=== PATIENT | male | born 1940 | race Caucasian/White ===

== ENCOUNTER 2016-10-11 07:58 | Emergency (ER) | payer MEDICARE, OTHER ==
[2016-10-11] MEDS ORDERED: HYDROmorphone 0.5 MG/0.5 ML Syringe IVPUSH ONE (08:11)
[2016-10-11] MEDS ORDERED: Metoclopramide 10 MG/2 ML SDV IVPUSH ONE (08:11)
[2016-10-11] MEDS ORDERED: Ketorolac 30 MG/ML SDV IVPUSH SCH (08:15)
[2016-10-11] MEDS ORDERED: Dextrose 5%-0.9% NaCl 1,000 ML IV SCH (08:15)
--- NOTE | 2016-10-11 08:17 | EDM.PDOC ---
ED HPI GENERAL MEDICAL PROBLEM - General Chief Complaint: Respiratory Problem Stated Complaint: [facility] Time Seen by Provider: 10/11/16 08:08 Source of Information: Reports: Patient History Limitations: Reports: No Limitations - History of Present Illness INITIAL COMMENTS - FREE TEXT/NARRATIVE: 76-year-old male presents to the ED with severe left upper anterior chest pain radiate through to his back and a sharp stabbing pleuritic fashion. States he is now 11 days post op left upper lobe where resection for cancer of the lung. Head and well up until last night in fact hadn't used any pain medication at all. Started after watching the ball game about 9:00 last night. It has persisted throughout the night. He's been taking Tylenol 2 tablets every 4 hours with some degree of relief. Some associated shortness of breath. Intermittent cough but no hemoptysis. He stayed in hospital for one week after surgery. It was carried out by Dr. Jarvis cardiovascular surgeon at [facility]. Denies fever or chills. Pain is worse with deep cough Onset: Sudden Onset Date: 10/10/16 Onset Time: 21:00 Duration: Hour(s):, Constant (Very sharp and pleuritic.) Location: Reports: Chest (Left upper anterior chest.) Quality: Reports: Sharp, Stabbing Severity: Severe (Rates the pain as 8-9 out of 10.) Improves with: Reports: Rest Worsens with: Reports: Movement (And shallow breathing. And deep breathing or coughing.) Context: Reports: Other (He is 11 days postop left upper lobe resection for cancer of the lung.) Associated Symptoms: Reports: Chest Pain, Shortness of Breath (A little more short of breath this morning the normal.). Denies: Confusion, Cough, cough w sputum, Diaphoresis, Fever/Chills, Headaches, Loss of Appetite, Malaise, Nausea/ Vomiting, Rash, Seizure, Syncope, Weakness Treatments [employer]: Reports: Acetaminophen Left Upper Chest Pain Score (Numeric/FACES): 4 - Related Data Allergies Allergy/AdvReac Type Severity Reaction Status Date / Time ticagrelor [From Brilinta] Allergy Shortness Verified 10/11/16 08:09 of Breath hydrocodone AdvReac Renal Verified 10/11/16 08:09 Failure Home Meds: Home Meds Aspirin [Manolo Chewable Aspirin] 81 mg PO DAILY 03/14/16 [History] Clopidogrel [Plavix] 75 mg PO DAILY 03/14/16 [History] Furosemide 20 mg PO DAILY 03/14/16 [History] Garlic 1,000 mg PO BEDTIME 03/14/16 [History] Insulin Aspart [Novolog Flexpen] 0 units SQ TID 03/14/16 [History] Insulin Glarg,Human.Rec.Analog [Lantus Solostar] 0 unit SUBCUT BEDTIME 03/14/16 [History] Lisinopril 2.5 mg PO DAILY 03/14/16 [History] Metoprolol Succinate [Toprol XL 50mg] 50 mg PO DAILY 03/14/16 [History] Pantoprazole [ProTONIX] 40 mg PO ACBREAKFAST 03/14/16 [History] Simvastatin [Zocor] 40 mg PO BEDTIME 03/14/16 [History] metFORMIN HCl [Metformin HCl] 1,000 mg PO BID 03/14/16 [History] Amiodarone [Cordarone] 400 mg PO BID 10/11/16 [History] Cyanocobalamin (Vitamin B12) [Vitamin B12] 1,000 mcg INJECT WEEKLY 10/11/16 [ History] Tamsulosin [Flomax] 0.4 mg PO DAILY 10/11/16 [History] Ubiquinol 100 mg PO DAILY 10/11/16 [History] oxyCODONE HCl/Acetaminophen [oxyCODONE-Acetaminophen 5-325] 2 tab PO Q4H PRN 10/21 [History] traMADol [Ultram] 50 mg PO Q6H PRN 10/11/16 [History] Past Medical History HEENT History: Reports: Impaired Vision, Retinal Detachment, Sinusitis Other HEENT History: wears eyeglassess, has upper and lower dentures, states eyes water frequently Cardiovascular History: Reports: Bypass, High Cholesterol, Hypertension, Pacemaker, Stents Gastrointestinal History: Reports: Chronic Constipation, GERD, Hemorrhoids Genitourinary History: Reports: Prostate Disorder Musculoskeletal History: Reports: Other (See Below) Other Musculoskeletal History: knees and left hip problems Endocrine/Metabolic History: Reports: Diabetes, Type II Oncologic (Cancer) History: Reports: Leukemia, Other (See Below) Other Oncologic History: 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; skin cancer Dermatologic History: Reports: Other (See Below) Other Dermatologic History: patient states he gets shingles ever year - Infectious Disease History Infectious Disease History: Reports: Shingles - Past Surgical History HEENT Surgical History: Reports: Cataract Surgery Cardiovascular Surgical History: Reports: Coronary Artery Stent, Other (See Below) Musculoskeletal Surgical History: Reports: Hip Replacement, Other (See Below) Oncologic Surgical History: Reports: Other (See Below) Social & Family History - Family History Family Medical History: Noncontributory Cardiac: Reports: [place] Oncologic: Reports: Leukemia - Tobacco Use Smoking Status *Q: Former Smoker Years of Tobacco use: 40 Used Tobacco, but Quit: Yes Month Tobacco Last Used: around 17 years ago - Caffeine Use Caffeine Use: Reports: None - Recreational Drug Use Recreational Drug Use: No Drug Use in Last 12 Months: No - Living Situation & Occupation Living situation: Reports: , with Significant Other Occupation: Retired ED ROS GENERAL - Review of Systems Review Of Systems: See Below Constitutional: Reports: Malaise (Recovering from surgery), Fatigue (From not sleeping very well last night), Decreased Appetite. Denies: Fever, Chills HEENT: Reports: No Symptoms Respiratory: Reports: Shortness of Breath, Pleuritic Chest Pain (Left upper anterior chest range through to the back chest.), Cough. Denies: Wheezing, Sputum, Hemoptysis Cardiovascular: Reports: Chest Pain (Minimal intermittent cough with no sputum production.), Blood Pressure Problem. Denies: Claudication, Edema, Lightheadedness, Orthopnea Endocrine: Reports: Fatigue GI/Abdominal: Reports: Constipation (Bowels are working normally now. But was constipated for a period of time) : Reports: Frequency, Other (Nocturia usually 3 has a known enlarged prostate ) Musculoskeletal: Reports: Back Pain Skin: Reports: No Symptoms Neurological: Reports: No Symptoms Psychiatric: Reports: No Symptoms Immunologic: Reports: No Symptoms ED EXAM, GENERAL - Physical Exam Exam: See Below Exam Limited By: No Limitations General Appearance: Alert, Mild Distress Eye Exam: Bilateral Eye: Normal Inspection Throat/Mouth: Normal Inspection, Normal Lips, Normal Teeth, Normal Oropharynx Head: Atraumatic, Normocephalic Neck: Normal Inspection, Supple, Non-Tender, Full Range of Motion Respiratory/Chest: Lungs Clear (Air entry is diminished to the left upper lobe but only slightly. No crackles or rhonchi were appreciated on exam.), Other ( Tenderness left upper anterior chest particularly ribs 34 and 5. His scar seems to be healing adequately although it's puffed up compatible with hematoma formation underneath this. There is no signs of active infection.). No: Crackles, Rales, Rhonchi, Wheezing Cardiovascular: Normal Peripheral Pulses, Regular Rate, Rhythm, No Murmur, Other (Pacemaker right upper anterior chest.) Peripheral Pulses: 2+: Posterior Tibial (L), Posterior Tibial (R), Dorsalis Pedis (L), Dorsalis Pedis (R) GI/Abdominal: Normal Bowel Sounds, Soft, Non-Tender, No Organomegaly, No Distention, No Abnormal Bruit, No Mass, Pelvis Stable Back Exam: Normal Inspection, Full Range of Motion, Other Extremities: Normal Inspection, Normal Range of Motion, Non-Tender, No Pedal Edema, Normal Capillary Refill Neurological: Alert, Oriented, CN II-XII Intact, Normal Cognition, No Motor/ Sensory Deficits ED RESPIRATORY PROCEDURES - Chest Tube Insertion Chest Tube Location: Left Site: Anterior Axillary Line, Intercostal Space: (5) Tube Size: 32Fr Skin Prep: CDC Guidelines Followed, Chlorhexidine Local Anesthesia - Bupivicaine (Marcaine): 0.5% Plain Local Anesthetic Volume: 4cc Boyd of Air [place]: Yes Number of Attempts: 2 Tube Sutured to Skin: Yes Post procedure tube position confirmed by: by CXR, by Provider Tube Connected to Suction: Yes EKG INTERPRETATION EKG Date: 10/11/16 Time: 08:20 Rhythm: Other (Sinus rhythm versus ectopic atrial rhythm.) Rate (Beats/Min): 66 Seeley: LAD-Left Seeley Deviation (Left axis deviation of -18) P-Wave: Variable QRS: LBBB ST-T: Normal QT: Prolonged Course - Vital Signs Last Recorded V/S: Last Vital Signs Temp 36.2 C 10/11/16 08:03 Pulse 64 10/11/16 08:45 Resp 19 10/11/16 08:45 BP 109/84 10/11/16 08:45 Pulse Ox 95 10/11/16 08:45 - Orders/Labs/Meds Orders: Active Orders 24 hr Category Date Time Status EKG Documentation Completion [RC] STAT Care 10/11/16 08:10 Active Chest 1V Frontal [CR] Routine Exams 10/11/16 11:59 Taken Chest 1V Frontal [CR] Stat Exams 10/11/16 08:09 Taken CBC W/O DIFF,HEMOGRAM [HEME] MOTH@0700 Lab 10/14/16 07:00 Ordered CBC W/O DIFF,HEMOGRAM [HEME] MOTH@0700 Lab 10/17/16 07:00 Ordered CBC W/O DIFF,HEMOGRAM [HEME] MOTH@0700 Lab 10/21/16 07:00 Ordered CBC W/O DIFF,HEMOGRAM [HEME] MOTH@0700 Lab 10/24/16 07:00 Ordered CBC W/O DIFF,HEMOGRAM [HEME] MOTH@0700 Lab 10/28/16 07:00 Ordered CBC W/O DIFF,HEMOGRAM [HEME] MOTH@0700 Lab 10/31/16 07:00 Ordered Dextrose 5%-0.9% NaCl [Dextrose 5%-Normal Saline] 1,000 Med 10/11/16 08:15 Active ml IV ASDIRECTED Ketorolac [Toradol] Med 10/11/16 08:15 Active 30 mg IVPUSH ONETIME Sodium Chloride 0.9% [Normal Saline] 100 ml Med 10/11/16 10:15 Active IV ASDIRECTED Medication Orders Dextrose/Sodium Chloride (Dextrose 5%-Normal Saline) 1,000 mls @ 100 mls/hr IV ASDIRECTED CEDRIC Last Admin: 10/11/16 08:36 Dose: 100 mls/hr Sodium Chloride (Normal Saline) 100 mls @ 60 mls/hr IV ASDIRECTED CEDRIC Stop: 10/11/16 13:00 Last Admin: 10/11/16 10:31 Dose: 60 mls/hr Ketorolac Tromethamine (Toradol) 30 mg IVPUSH ONETIME CEDRIC Last Admin: 10/11/16 08:42 Dose: 30 mg Labs: Laboratory Tests 10/11/16 10/11/16 10/11/16 Range/Units 08:20 09:13 09:13 WBC 14.19 H (4.23-9.07) K/mm3 RBC 4.25 L (4.63-6.08) M/mm3 Hgb 13.3 L (13.7-17.5) gm/L Hct 40.7 (40.1-51.0) % MCV 95.8 H (79.0-92.2) fl MCH 31.3 (25.7-32.2) pg MCHC 32.7 (32.2-35.5) g/dl RDW Std Deviation 47.6 H (35.1-43.9) fL Plt Count 268 (163-337) K/mm3 MPV 12.3 (9.4-12.3) fl Neutrophils % (Manual) 72 H (40-60) % Band Neutrophils % 1 (0-10) % Lymphocytes % (Manual) 14 L (20-40) % Atypical Lymphs % 0 % Monocytes % (Manual) 7 (2-10) % Eosinophils % (Manual) 5 (0.8-7.0) % Basophils % (Manual) 1 (0.2-1.2) Platelet Estimate Adequate RBC Morph Comment Normal PT 10.2 (8.0-13.0) SECONDS INR 0.94 D-Dimer, Quantitative (0.19-0.59) mg/L Sodium 136 (136-145) mEq/L Potassium 4.6 (3.5-5.1) mEq/L Chloride 102 (98-107) mEq/L Carbon Dioxide 27 (21-32) mEq/L Anion Gap 11.6 (5-15) BUN 14 (7-18) mg/dL Creatinine 1.3 (0.7-1.3) mg/dL Est Cr Clr Drug Dosing 52.93 mL/min Estimated GFR (MDRD) 53 (>60) mL/min BUN/Creatinine Ratio 10.8 L (14-18) Glucose 114 (83-115) mg/dL Calcium 9.6 (8.5-10.1) mg/dL Magnesium 1.4 L (1.8-2.4) mg/dl Total Bilirubin 0.4 (0.2-1.0) mg/dL AST 22 (15-37) U/L ALT 37 (16-63) U/L Alkaline Phosphatase 128 H (46-116) U/L CK-MB (CK-2) 0.6 (0-3.6) ng/ml Troponin I < 0.017 (0.00-0.056) ng/mL B-Natriuretic Peptide (0-100) pg/mL Total Protein 6.4 (6.4-8.2) g/dl Albumin 2.8 L (3.4-5.0) g/dl Globulin 3.6 gm/dL Albumin/Globulin Ratio 0.8 L (1-2) 10/11/16 10/11/16 Range/Units 09:13 09:13 WBC (4.23-9.07) K/mm3 RBC (4.63-6.08) M/mm3 Hgb (13.7-17.5) gm/L Hct (40.1-51.0) % MCV (79.0-92.2) fl MCH (25.7-32.2) pg MCHC (32.2-35.5) g/dl RDW Std Deviation (35.1-43.9) fL Plt Count (163-337) K/mm3 MPV (9.4-12.3) fl Neutrophils % (Manual) (40-60) % Band Neutrophils % (0-10) % Lymphocytes % (Manual) (20-40) % Atypical Lymphs % % Monocytes % (Manual) (2-10) % Eosinophils % (Manual) (0.8-7.0) % Basophils % (Manual) (0.2-1.2) Platelet Estimate RBC Morph Comment PT (8.0-13.0) SECONDS INR D-Dimer, Quantitative 4.04 H (0.19-0.59) mg/L Sodium (136-145) mEq/L Potassium (3.5-5.1) mEq/L Chloride (98-107) mEq/L Carbon Dioxide (21-32) mEq/L Anion Gap (5-15) BUN (7-18) mg/dL Creatinine (0.7-1.3) mg/dL Est Cr Clr Drug Dosing mL/min Estimated GFR (MDRD) (>60) mL/min BUN/Creatinine Ratio (14-18) Glucose (83-115) mg/dL Calcium (8.5-10.1) mg/dL Magnesium (1.8-2.4) mg/dl Total Bilirubin (0.2-1.0) mg/dL AST (15-37) U/L ALT (16-63) U/L Alkaline Phosphatase (46-116) U/L CK-MB (CK-2) (0-3.6) ng/ml Troponin I (0.00-0.056) ng/mL B-Natriuretic Peptide 121 H (0-100) pg/mL Total Protein (6.4-8.2) g/dl Albumin (3.4-5.0) g/dl Globulin gm/dL Albumin/Globulin Ratio (1-2) Meds: Medications Generic Name Dose Route Start Last Admin Trade Name Freq PRN Reason Stop Dose Admin Dextrose/Sodium Chloride 1,000 mls @ 100 mls/hr 10/11/16 08:15 10/11/16 08:36 Dextrose 5%-Normal Saline IV 100 mls/hr ASDIRECTED CEDRIC Administration Sodium Chloride 100 mls @ 60 mls/hr 10/11/16 10:15 10/11/16 10:31 Normal Saline IV 10/11/16 13:00 60 mls/hr ASDIRECTED CEDRIC Administration Ketorolac Tromethamine 30 mg 10/11/16 08:15 10/11/16 08:42 Toradol IVPUSH 30 mg ONETIME CEDRIC Administration Discontinued Medications Generic Name Dose Route Start Last Admin Trade Name Freq PRN Reason Stop Dose Admin Alfentanil HCl Confirm 10/11/16 10:58 Alfenta Administered 10/11/16 10:59 Dose 1,000 mcg .ROUTE .STK-MED ONE Bupivacaine HCl 10 ml 10/11/16 11:00 Sensorcaine-Mpf 0.5% INJECT 10/11/16 11:01 ONETIME ONE Enoxaparin Sodium 95 mg 10/11/16 12:08 10/11/16 12:12 Lovenox SUBCUT 10/11/16 12:09 95 mg ONETIME ONE Administration Fentanyl 100 mcg 10/11/16 10:59 Sublimaze IVPUSH 10/11/16 11:00 ONETIME ONE Hydromorphone HCl 0.5 mg 10/11/16 08:11 10/11/16 08:34 Dilaudid IVPUSH 10/11/16 08:12 Not Given ONETIME ONE Hydromorphone HCl 0.5 mg 10/11/16 08:29 10/11/16 08:39 Dilaudid IVPUSH 10/11/16 08:30 0.5 mg ONETIME ONE Administration Iopamidol 100 ml 10/11/16 10:03 10/11/16 10:30 Isovue-370 (76%) IVPUSH 10/11/16 10:04 100 ml ONETIME ONE Administration Iopamidol 50 ml 10/11/16 10:03 10/11/16 10:30 Isovue-370 (76%) IVPUSH 10/11/16 10:04 50 ml ONETIME ONE Administration Metoclopramide HCl 7.5 mg 10/11/16 08:11 10/11/16 08:43 Reglan IVPUSH 10/11/16 08:12 7.5 mg ONETIME ONE Administration Midazolam HCl 5 mg 10/11/16 11:00 Versed 1 Mg/Ml IVPUSH 10/11/16 11:01 ONETIME ONE Midazolam HCl Confirm 10/11/16 11:08 Versed 1 Mg/Ml Administered 10/11/16 11:09 Dose 2 mg .ROUTE .STK-MED ONE Propofol Confirm 10/11/16 11:13 Diprivan 20 Ml Administered 10/11/16 11:14 Dose 200 mg .ROUTE .STK-MED ONE Sodium Chloride 10 ml 10/11/16 10:03 10/11/16 10:31 Saline Flush FLUSH 10/11/16 10:04 10 ml ONETIME ONE Administration - Radiology Interpretation Free Text/Narrative:: 68-year-old male presents to the ED with acute onset of left-sided pleuritic chest pain starting last night about 9:00. 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 He had this resected on September 30 and remained in hospital until Friday, October 07. He has been fine in fact did not feel the pain medication as he did not feel he needed it. Pleuritic pain started last evening and continued throughout the night. He is taken Tylenol and multiple occasions struck the night. Associated mild shortness of breath. Pain is worsened by deep breathing and coughing. On exam good air entry throughout the lung coon however is appreciated without evidence of tracheal deviation. His thoracotomy wound appears to be healing satisfactorily. Plan saline lock. We'll give Dilaudid 0.5 mg IV with Toradol 30 mg IV and Reglan 7.5 mg IV for pain relief. One view chest x-ray and routine labs including cardiac markers to be done since he has a history of coronary disease with previous double bypass surgery and a pacemaker. - Re-Assessments/Exams Free Text/Narrative Re-Assessment/Exam: 10/11/16 08:44 chest x-ray reveals evidence of recent surgery in the left upper lobe. There appears to be a area of collapse or atelectasis in the lingular area. No pneumothorax is evident. No mediastinal shift evident. 10/11/16 10:06 d-dimer returned at 4.04. He hasn't been very active since having the lobectomy. I would've anticipated his blood d-dimer to gone closer to normal week after surgery. I will therefore have a CT pulmonary and gram performed since his creatinine is 1.3 at this time. Patient is on metformin and his medication will have to be held for 3 days post IV contrast material. 10/11/16 10:44 CT of the chest pulmonary angiogram has been completed. He does reveal a moderate left-sided pneumothorax postoperatively taking up 40-50% of the lung field. Patient will require a chest tube. Will see if the surgeon is busy at this time otherwise I will put it in. I also question whether or not there may be a couple of small pulmonary emboli in the right lower lobe vasculature. I will await the radiologist's report in this regard. 10/11/16 11:04 radiology reports a large pneumothorax in the left side as well and comments that he places a chest tube is going to be required. He agrees with me that there are small subsegmental pulmonary emboli within the right lower lobe as well. Therefore the patient will be given Lovenox after the chest tube has been inserted. The plan will be to send him back to [facility] in [facility] if he has a significant leak postoperatively may not settle with a chest tube alone and he may need further intervention over the weekend. 10/11/16 12:14 32 Belarusian chest tube placed left anterior axillary line fifth intercostal space. It was readjusted on 3 occasions as it continues to travel medially along the mediastinum anterior to the heart up into the apex. Readjustment did not change its direction. Sutured to the skin with pursestring suture and tube secured with second suture. X-ray reveals the chest tube to travel medially anterior to the heart and up into the apex. Approximate 100 mils of serosanguineous serous fluid draining through the chest tube at the time of insertion. Arrangements have been made to transfer the patient to [facility] in case his pneumothorax does not resolve spontaneously. Dr. Tavarez has accepted care from the department of cardiac vascular surgery and Dr. Walker has accepted from the department of hospitalist care. He will be transported per ground ambulance. He was given Lovenox 95 mg subcutaneously due to the findings of pulmonary emboli in the right lower lobe. Departure - Departure Time of Disposition: 12:18 Disposition: DC/Tfer to Acute Hospital 02 Condition: Fair Clinical Impression: Pneumothorax on left, Pulmonary embolism with infarction - Discharge Information Forms: ED Department Discharge Additional Instructions: Patient transferred to [facility] in [place] where he received recent left upper lobe lobectomy by Dr. Jarvis. Has developed a spontaneous left- sided pneumothorax last night and it was approximately 50%. Chest tube inserted to provide air and fluid drainage. #232 Belarusian use. This was done with the aid of anesthesia. Propofol was used primarily as a sedating an anesthetic agent. The site was infiltrated with 0.5% Marcaine. Tube secured with 2 sutures and a pursestring suture. X-ray revealed satisfactory position of the tube although travels anterior to the heart and up into the apex. - My Orders Last 24 Hours: My Active Orders 10/11/16 08:09 Chest 1V Frontal [CR] Stat 10/11/16 08:10 EKG Documentation Completion [RC] STAT 10/11/16 08:15 Dextrose 5%-0.9% NaCl [Dextrose 5%-Normal Saline] 1,000 ml IV ASDIRECTED Ketorolac [Toradol] 30 mg IVPUSH ONETIME 10/11/16 10:15 Sodium Chloride 0.9% [Normal Saline] 100 ml IV ASDIRECTED 10/11/16 11:59 Chest 1V Frontal [CR] Routine 10/14/16 07:00 CBC W/O DIFF,HEMOGRAM [HEME] MOTH@0700 10/17/16 07:00 CBC W/O DIFF,HEMOGRAM [HEME] MOTH@0700 10/21/16 07:00 CBC W/O DIFF,HEMOGRAM [HEME] MOTH@0700 10/24/16 07:00 CBC W/O DIFF,HEMOGRAM [HEME] MOTH@0700 10/28/16 07:00 CBC W/O DIFF,HEMOGRAM [HEME] MOTH@0700 10/31/16 07:00 CBC W/O DIFF,HEMOGRAM [HEME] MOTH@0700 - Assessment/Plan Last 24 Hours: My Active Orders 10/11/16 08:09 Chest 1V Frontal [CR] Stat 10/11/16 08:10 EKG Documentation Completion [RC] STAT 10/11/16 08:15 Dextrose 5%-0.9% NaCl [Dextrose 5%-Normal Saline] 1,000 ml IV ASDIRECTED Ketorolac [Toradol] 30 mg IVPUSH ONETIME 10/11/16 10:15 Sodium Chloride 0.9% [Normal Saline] 100 ml IV ASDIRECTED 10/11/16 11:59 Chest 1V Frontal [CR] Routine 10/14/16 07:00 CBC W/O DIFF,HEMOGRAM [HEME] MOTH@69910/17/16 07:00 CBC W/O DIFF,HEMOGRAM [HEME] MOTH@69910/21/16 07:00 CBC W/O DIFF,HEMOGRAM [HEME] MOTH@69910/24/16 07:00 CBC W/O DIFF,HEMOGRAM [HEME] MOTH@69910/28/16 07:00 CBC W/O DIFF,HEMOGRAM [HEME] MOTH@69910/31/16 07:00 CBC W/O DIFF,HEMOGRAM [HEME] MOTH@699
[2016-10-11] MEDS ORDERED: HYDROmorphone 1 MG/ML Syringe IVPUSH ONE (08:29)
[2016-10-11] MEDS ORDERED: Iopamidol 755 MG/ML 50 ML Bottle IVPUSH ONE (10:03)
[2016-10-11] MEDS ORDERED: Sodium Chloride 0.9% 10 ML Syringe FLUSH ONE (10:03)
[2016-10-11] MEDS ORDERED: Iopamidol 755 Mg/ML 100 ML Bottle IVPUSH ONE (10:03)
[2016-10-11] MEDS ORDERED: Sodium Chloride 0.9% 100 ML IV SCH (10:15)
[2016-10-11] MEDS ORDERED: Alfentanil 500 MCG/ML 2ML Amp ONE (10:58)
[2016-10-11] MEDS ORDERED: fentaNYL 100 MCG/2 ML SDV IVPUSH ONE (10:59)
--- NOTE | 2016-10-11 10:59 | CT ---
CT chest Technique: Multiple axial sections through the chest were obtained. Intravenous contrast was utilized. Study has been performed as a pulmonary angiogram protocol. Findings: Pulmonary arteries are well-opacified. Very small subsegmental filling defects are seen within the right lower pulmonary arteries compatible with small pulmonary emboli. No pulmonary emboli are seen within the main pulmonary arteries or within the segmental branches. Small left-sided pleural effusion is seen which appears to have some loculations. Heart is enlarged. Coronary artery calcification is seen. Fluid is seen within the esophagus compatible with reflux. Aorta mildly ectatic at 4.3 cm. Atherosclerotic calcification is noted within the thoracic aorta. Moderately large left sided pneumothorax is seen. Mild increased lung markings are seen within both lung bases most likely chronic. Bone window settings were reviewed which shows scattered degenerative spurring within the spine. Impression: 1. Moderately large left-sided pneumothorax. I believe that this will require a chest tube. 2. Small subsegmental pulmonary emboli within the right lower lobe pulmonary artery. 3. Small left-sided pleural effusion which shows some loculations. 4. Other findings as described above felt to be incidental. Diagnostic code #5
[2016-10-11] MEDS ORDERED: Midazolam 1 MG/ML 5 ML SDV IVPUSH ONE (11:00)
[2016-10-11] MEDS ORDERED: Bupivacaine 0.5% 10 ML SDV INJECT ONE (11:00)
[2016-10-11] MEDS ORDERED: Midazolam 1 MG/ML 2 ML SDV ONE (11:08)
[2016-10-11] MEDS ORDERED: Propofol 200 MG/20 ML SDV ONE (11:13)
[2016-10-11] MEDS ORDERED: Enoxaparin 100 MG/1 ML Syringe SUBCUT ONE (12:08)
--- NOTE | 2016-10-11 12:08 | PCM.SN ---
- Free Text/Narrative Note: Anesthesiology procedural sedation note Called to ER fpr procedural sedation/analgesia for chest tube pt in 76 yo male with recent hx (11 days ago) partial pneumonectomy for localized lung CA. Now with chest pain and found to have left sided pneumothorax. Medical hx of Diabetes, GERD, HTN, and CAD with prior double by-pass and stent placement and Pacemaker. Pre-procedure vital signs:143/70, HR 60 SPO2 98, RR17 Pre-ox performed then IV sedation with propofol incrementally dosed and 1000 mg alfentanil IV for actual insertion of chest-tube. Ambu used for ~45 seconds of resultant apnea with oral airway in place. Return of spontaneous respirations and continued O2 supplementation. pt aroused and conversant. subsequent x-ray showed malposition of chest-tube. more propofol given for repositioning during which pt maintained spontaneous resp. VSS throughout. Post-procedure vitals 134/64 HR 60, RR 16 SPO2 97. no complications, pt tolerated procedure well.
--- NOTE | 2016-10-11 12:22 | CR ---
Chest: Portable view of the chest was obtained. Comparison: Previous chest x-ray of 03/15/16. Subsequent CT chest was also compared to performed later on the same day. Findings: Subcutaneous air noted within the left chest wall. Chest CT was reviewed which shows fractures within the left sixth and seventh posterior ribs. Pneumothorax is seen within the left lung apex which appears larger on subsequent CT exam. Atelectasis is seen within the left lung base. Blunting of the lateral left costophrenic angle is seen compatible with pleural effusion. Right lung is clear. Pacemaker is noted. Prior sternotomy is seen. Impression: 1. Two left-sided rib fractures are seen posteriorly within the sixth and seventh ribs which are seen on review of subsequent chest CT. 2. Small pneumothorax which appears larger on subsequent CT exam. 3. Mild amount of subcutaneous air within the left chest. 4. Blunting of the lateral left costophrenic angle compatible with pleural effusion. Diagnostic code #3
--- NOTE | 2016-10-11 13:30 | CR ---
Chest: Portable view of the chest was obtained. Comparison: Previous chest CT and chest x-ray performed earlier. Moderately large left-sided pneumothorax is seen. Left chest tube is seen but pneumothorax has not evacuated as of this time. Better aeration of the left lung is seen from prior exam. Right lung is clear. Subcutaneous air is noted within the left chest. Left-sided rib fractures are better seen on previous chest CT. 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 Heart size is mildly enlarged. Upper mediastinum is normal. Impression: 1. Left-sided chest tube. Continuing pneumothorax within the left chest. 2. Subcutaneous air within the left chest wall remains. 3. Other incidental findings as described above. Diagnostic code #3
[2016-10-11 14:36] VITALS: BP 149/69
== END 2016-10-11 12:40 ==
LOC: JD.ED 07:58
DX: J93.9 Pneumothorax, unspecified (principal); I26.99 Other pulmonary embolism without acute cor pulmonale; Z88.5 Allergy status to narcotic agent; Z79.82 Long term (current) use of aspirin; Z79.899 Other long term (current) drug therapy; H54.7 Unspecified visual loss; E78.00 Pure hypercholesterolemia, unspecified; I10 Essential (primary) hypertension; Z95.0 Presence of cardiac pacemaker; Z95.5 Presence of coronary angioplasty implant and graft; K21.9 Gastro-esophageal reflux disease without esophagitis; E11.9 Type 2 diabetes mellitus without complications; Z98.49 Cataract extraction status, unspecified eye; Z87.891 Personal history of nicotine dependence; R06.02 Shortness of breath
CPT/HCPCS: 32551; 36415; 71010; 71275; 80053; 82553; 83735; 83880; 84484; 85025; 85379; 85610; 93005; 96361; 96372; 96374; 96375; 99285; J1170; J1650; J1885; J2765; J7030; J7042; J7050; Q9967; 00520; J2704